=== PATIENT | female | born 1935 | race Caucasian/White ===

== ENCOUNTER → 2021-06-30 | Outpatient (CLI) | payer OTHER ==
[~2021-06-30] MED LIST: ALEVE220 M1 PO; ALEVE220 MG PO; ASPIRIN EC81 M1; ASPIRIN EC81 M1 PO; CENTRUM SILVER1 EAC4 PO; COZAAR 25 MG TA25 MG PO; FLEXERIL PO; FOLBIC RF TABL1 EACH PO; LIPITOR10 MG PO; LUMIGAN5 ML; MAXIDE; MAXIDE 75/50 PO; MELOXICAM7.5 MG PO; MEVACOR 20 MG T20 MG PO; NASACORT AQ; PAXIL10 MG; PERCOCET 10-321 EACH; PERCOCET 5-3251 EACH PO; PREDNISONE 20 M20 M1 PO; PREVACID15 MG PO; PRILOSEC 20 MG20 MG PO; PRILOSEC40 MG PO; ZANTAC 150MG T150 M1 PO
== END ==
LOC: M.RAD 14:38
PROVIDERS: ATTEND Family Medicine
DX: M19.011 Primary osteoarthritis, right shoulder (principal)